=== PATIENT | male | born 1975 | race Caucasian/White ===

== ENCOUNTER 2022-07-14 10:07 | Inpatient (IN) | payer OTHER, SELFPAY ==
[2022-07-14] VITALS (8 sets, daily range): BP systolic 121–144; BP diastolic 84–109; PULSE 92–100; RESP 12–18; TEMP 36.6–37; O2SAT 99–100; BMI 29.9
--- NOTE | ~2022-07-14 | XR_ITS ---
EXAMINATION: XR foot RT min 3V DATE: 07/14/2022 10:56 INDICATION: Diabetic with right second toe wound TECHNIQUE: Dorsoplantar, two oblique and lateral views of the right foot were obtained. COMPARISON: None. FINDINGS: Change consistent with right great toe amputation with relatively smooth osteotomy margins across the mid diaphysis of the first metatarsal and a couple associated residual) versus heterotopic ossicles also with smooth margins. Fracture at the base of the right second middle phalanx with displacement o f a bone fragment which projects to near the skin surface dorsal to the head of the proximal fragment which appears to remain intact with smooth cortical surface. There appears to be some osteolysis josephine ng the fracture margin of the distal fragment as well as of projecting along the level of the skin yee rface which suggests an open/compound fracture with secondary osteomyelitis which does not appear to involve the more proximal or distal phalanges. No other fractures or lesions suspicious for osteomyel itis. Prominent hypertrophic changes about the lateral malleolus which could represent heterotopic os sification related to chronic lateral ankle sprains. Mild polyarticular osteoarthritis at the right a nkle joint and many of the joints throughout the right foot. No soft tissue gas or radiopaque foreign bodies. IMPRESSION: 1. Displaced fracture at the base of the right second middle phalanx, one fragment which appears to e xtend near the level of the dorsal skin surface. There appears to be some osteolysis steroid with th is fragment and the more distal fragment raising concern for an open/compound fracture with secondary osteomyelitis. 2. Postoperative change of prior right great toe amputation with osteotomy at the first metatarsal di aphysis. 3. Prominent hypertrophic changes about the lateral malleolus likely sequela of chronic lateral ankle sprain. Reviewed, dictated and finalized at location A. NDWATER MONITORING TECHNICIAN IMPRESSION: 1. Displaced fracture at the base of the right second middle phalanx, one fragm ent which appears to extend near the level of the dorsal skin surface. There ap pears to be some osteolysis steroid with this fragment and the more distal fra gment raising concern for an open/compound fracture with secondary osteomyeliti s. 2. Postoperative change of prior right great toe amputation with osteotomy at t he first metatarsal diaphysis. 3. Prominent hypertrophic changes about the lateral malleolus likely sequela of chronic lateral ankle sprain.
--- NOTE | ~2022-07-14 | US_ITS ---
EXAMINATION: US arterial ankle brachial ind DATE: 07/16/2022 10:20 INDICATION: Bilateral arterial occlusive disease TECHNIQUE: Segmental pressures and plethysmographic and Doppler waveforms of the brachial and lower e xtremity arteries were obtained. COMPARISON: None. FINDINGS: Right and left brachial artery pressures of 115 mm Hg and 108 mm Hg, respectively, are concordant (no rmal difference <= 30 mmHg). The left ankle-brachial index (ROSARIO) is 1.17 (normal >= 0.9-1.0). The left great toe-brachial index (T BI) is 0.47 (normal >= 0.65). Arterial Doppler waveforms are biphasic with brisk systolic upstrokes a t both the left posterior tibial and dorsalis pedis arteries. The right ROSARIO is 0.99. The right TBI is unable to be obtained due to prior amputation of the right gr eat toe. Arterial Doppler waveforms are biphasic with borderline delayed upstrokes and slight broaden ing of the systolic peaks at both the right posterior tibial and dorsalis pedis arteries. IMPRESSION: 1. Mild bilateral arterial occlusive disease with mildly decreased right ROSARIO and moderately decreased left TBI. Reviewed, dictated and finalized at location A. MAKING MACHINE SETTER IMPRESSION: 1. Mild bilateral arterial occlusive disease with mildly decreased right ROSARIO an d moderately decreased left TBI.
--- NOTE | 2022-07-14 11:36 | ED.WOUNDLAC ---
HPI - Wound/Laceration General Chief Complaint: Wound/Laceration Stated Complaint: foot ulcer Time Seen by Provider: 07/14/22 10:33 History of Present Illness HPI narrative: Pt presents with a wound and discoloration to right 2nd toe. Pt says he had right great toe amputated awhile back by Dr Flores at [facility]. Pt had recent abscess drainage in inguinal area as well. Pt says he noticed a wound on his 2nd toe a few days ago but it seems to have gotten worse and he squeezed it and blood came out but no pus. Today noticed it was blue. Pt is diabetic and has neuropathy. Pt did stub toe a couple of days ago. Pt is known covid positive. Related Data Allergies Allergy/AdvReac Type Severity Reaction Status Date / Time haloperidol AdvReac Unknown Anaphylaxis Verified 07/14/22 10:19 Review of Systems Review of Systems: All systems reviewed & are unremarkable except as noted in HPI and below Exam Const: General: healthy appearing Nutritional Appearance: well nourished Orientation/consciousness: patient oriented x3 Limitations: no limitations Eyes: Conjunctivae: conjunctivae normal EOM: EOMs intact bilaterally Neck: Neck: normal visual inspection and no lymphadenopathy Resp: Effort & Inspection: normal respiratory effort Auscultation: clear to auscultation bilaterally Cardio: Rate: regular rate Rhythm: regular rhythm GI: GI Palp: Yes Soft to palpation and No Tenderness to palpation present (GI) Auscultation: normal bowel sounds Skin: Other: blue/cyanotic right 2nd toe Neuro: General: patient oriented x3 and moves all extremities Speech: normal speech Extrem: Other: wound to 2nd toe no purulent cyanotic blue toe Psych: Mental Status: mental status grossly normal Affect: normal affect Attitude: cooperative Course Vital Signs Vital signs: Vital Signs Temperature 98 F 07/14/22 10:05 Pulse Rate 92 07/14/22 10:05 Respiratory Rate 12 07/14/22 10:05 Blood Pressure 121/96 H 07/14/22 10:05 Pulse Oximetry 100 07/14/22 10:05 Temperature 98 F 07/14/22 10:05 Pulse Rate 100 07/14/22 16:37 Respiratory Rate 12 07/14/22 16:37 Blood Pressure 144/105 H 07/14/22 16:46 Pulse Oximetry 100 07/14/22 16:46 MDM - Wound/Laceration MDM Narrative Medical decision making narrative: fx v necrotic toe v osteo d/w dr hill will see pt d/w anel cha will accept admit med/surg Lab Data 07/14/22 11:30 07/14/22 11:30 Labs: Lab Results 07/14/22 07/14/22 07/14/22 Range/Units 11:30 11:30 11:30 WBC 7.3 (4.5-10.0) K/mm3 RBC 5.31 (4.6-6.20) M/mm3 Hgb 14.4 (14.0-18.0) g/dL Hct 46.5 (42.0-52.0) % MCV 87.6 (80-100) fl MCH 27.1 (26-34) pg MCHC 31.0 L (32-36) g/dl RDW 15.5 H (11.5-14.5) % Plt Count 237 (150-375) k/mm3 MPV 10.2 (7.4-10.4) fl Immature Gran % (Auto) 0.1 (0-0.5) % Neut % (Auto) 66.1 (45.5-73.1) % Lymph % (Auto) 27.8 (18.3-44.2) % Brooke % (Auto) 5.3 (2.6-8.5) % Eos % (Auto) 0.4 (0-4.4) % Baso % (Auto) 0.3 (0.2-1.2) % Lymph # (Auto) 2.03 (0.9-3.2) K/mm3 Brooke # (Auto) 0.4 (0.1-0.6) K/mm3 Eos # (Auto) 0.0 (0-0.3) K/mm3 Baso # (Auto) 0.0 (0.0-0.1) K/mm3 Abs Immat Gran (auto) 0.01 (0.00-0.031) K/mm3 Absolute Neuts (auto) 4.8 (1.3-6.7) K/mm3 Absolute Nucleated RBC 0.0 (0.0-0.012) K/mm3 Nucleated RBC % 0.0 (0.0-0.2) % PT 14.0 (11.1-14.7) Seconds INR 1.1 APTT 28.7 (22.3-36.8) SECONDS Sodium 131 L (137-145) mmol/L Potassium 4.1 (3.4-5.0) mmol/L Chloride 95 L (98-107) mmol/L Carbon Dioxide 31 H (22-30) mmol/L Anion Gap 5 L (8-16) mmol/L BUN 22 H (9-20) mg/dL Creatinine 1.00 (0.7-1.3) mg/dL Estim Creat Clear Calc Not Reportable Estimated GFR > 60 (59 - ) Glucose 77 (65-110) mg/dL Lactic Acid (0.7-2.0) mmol/L Calcium 8.1 L (8.4-10.2) mg/dL Total Bilirubin 0.8 (0.2-1.3)
[2022-07-14 11:43] LABS: Basophils Percent Auto 0.3 % (0.2-1.2); Eosinophils Percent Auto 0.4 % (0-4.4); Hematocrit 46.5 % (42.0-52.0); Hemoglobin 14.4 g/dL (14.0-18.0); Immature Granulocyte Absolute 0.01 K/mm3 (0.00-0.031); Immature Granulocyte Percent A 0.1 % (0-0.5); Lymphocytes Absolute Auto 2.03 K/mm3 (0.9-3.2); Lymphocytes Percent Auto 27.8 % (18.3-44.2); Mean Corpuscular Hemoglobin 27.1 pg (26-34); Mean Corpuscular Volume 87.6 fl (80-100); Mean Platelet Volume 10.2 fl (7.4-10.4); Monocytes Absolute Auto 0.4 K/mm3 (0.1-0.6); Monocytes Percent Auto 5.3 % (2.6-8.5); Neutrophils Absolute Auto 4.8 K/mm3 (1.3-6.7); Neutrophils Percent Auto 66.1 % (45.5-73.1); Platelet Count Result 237 k/mm3 (150-375); Red Blood Count 5.31 M/mm3 (4.6-6.20); Red Cell Distribution Width 15.5 % (11.5-14.5); White Blood Count 7.3 K/mm3 (4.5-10.0)
[2022-07-14] MEDS: MORPHINE SULFATE (*CRX) 4 MG/ML INJ IV PUSH (11:43)
[2022-07-14 11:55] LABS: Lactic Acid Reflex 1.1 mmol/L (0.7-2.0)
[2022-07-14 11:57] LABS: INR 1.1
[2022-07-14 11:58] LABS: Alanine Aminotransferase 22 U/L (6-50); Albumin Level 3.5 g/dL (3.5-5.1); Alkaline Phosphatase 125 U/L (38-126); Anion Gap 5 mmol/L (8-16); Aspartate Amino Transferase 30 U/L (17-59); Bilirubin,Total 0.8 mg/dL (0.2-1.3); Blood Urea Nitrogen 22 mg/dL (9-20); CRP 1.1 mg/dL (<1.0); Calcium 8.1 mg/dL (8.4-10.2); Carbon Dioxide 31 mmol/L (22-30); Chloride 95 mmol/L (98-107); Estimated Glomerular Filt Rate > 60; Glucose 77 mg/dL (65-110); Partial Thromboplastin Time 28.7 SECONDS (22.3-36.8); Potassium 4.1 mmol/L (3.4-5.0); Sodium 131 mmol/L (137-145)
[2022-07-14 12:19] LABS: Influenza A QL RT-PCR Negative (Negative); Influenza B QL RT-PCR Negative (Negative); SARS-CoV-2 RNA PCR Positive
--- NOTE | 2022-07-14 13:45 | PM.IMHP ---
H&P: HPI History of Present Illness Date/Time: 07/14/22 13:45 Chief Complaint: Left toe wound. Narrative: This is a 47-year-old male with insulin-dependent diabetes, peripheral neuropathy, hypertension, hyperlipidemia, and heart failure with reduced ejection fraction who presented to the ED via EMS from [facility] for evaluation of a left toe wound. He has had what sounds like a blister on the left 2nd toe and a couple of days ago he believes that he stubbed that toe as the tip of the toe is now black and blue. The chronic blistered area has apparently increased in size and this morning he squeeze the area and reports that some blood came out, no purulent drainage. Radiographs showed a displaced fracture at the base of the right 2nd middle phalanx with appearance of osteolysis and possible osteomyelitis. On exam he was noted to have a right 1st toe amputation which was done earlier this year at [facility] and he reports that he still has pain surrounding that site though that is not new. Also of note he tested positive for COVID about 5 to 7 days ago but he has not really had any significant symptoms. He denies fever, chills, sweats, sinus congestion, sore throat, cough, nausea, vomiting, and diarrhea. No known history of multidrug resistant organisms. Review of Systems Review of Systems: Twelve systems were reviewed and are negative except for as per HPI. [facility] Past Medical History Medical History (Updated 07/14/22 @ 21:54 by Elizabeth Hernandez PA-C) Anxiety Heart failure with reduced ejection fraction Hyperlipidemia Hypertension Insulin dependent type 2 diabetes mellitus Posttraumatic stress disorder Surgical History Surgical History (Updated 07/14/22 @ 21:48 by Elizabeth Hernandez PA-C) History of amputation of right great toe (2021) History of cardiac catheterization Clear coronaries per patient report. History of open reduction and internal fixation (ORIF) procedure Bilateral ankles and left hand. Family History Family History (Updated 07/14/22 @ 21:49 by Elizabeth Hernandez PA-C) Mother Cerebrovascular accident Acute myocardial infarction Father Diabetes mellitus Hypertension Congestive heart failure Sibling Diabetes mellitus Hypertension Social History Social History (Updated 07/14/22 @ 21:49 by Elizabeth Hernandez PA-C) Social History: Surrogate medical decision maker: Ton Montenegro, son. Code status: Full code. Smoking packs per day: 1 Smoking cigarettes per day: 20.0 Smoking status: Former smoker Tobacco type: cigarettes Smoking end date: 04/28/22 Alcohol intake: never Substance use: current Substance use type: marijuana Lack of Transportation: No Lack of Food: Never True Current Housing: I Do Not Have Housing Concerned About Future Housing: YES Difficulty Paying Gas/Electric Bills: Decline to Answer Difficulty Paying for Meds: No Currently Unemployed: YES Education: Decline to Answer Difficulty w/ Childcare or Family Care: No Additional living arrangements comments: Currently at [facility]. Additional occupation/education comments: Not currently employed, previously worked in [employer]. Spiritual care concerns: No Meds Home Medications and Allergies Home Medications Medication Instructions Recorded Confirmed Type Atarax 50 mg PO Q6-8H PRN Anxiety 07/14/22 07/14/22 History Lasix 60 mg PO DAILY 07/14/22 07/14/22 History Multi-Day Plus Minerals 1 cap PO DAILY 07/14/22 07/14/22 History acetaminophen 650 mg PO Q6-8H PRN Pain 07/14/22 07/14/22 History atorvastatin 40 mg tablet 40 mg PO HS 07/14/22 07/14/22 History gabapentin 600 mg PO TID 07/14/22 07/14/22 History insulin glargine 100 unit/mL 25 unit subcut HS 07/14/22 07/14/22 History subcutaneous solution (Lantus U-100 Insulin) insulin lispro 100 unit/mL See Rx Instructions .Route .COMPLEX 07/14/22 07/14/22 History subcutaneous solution (Humalog U-100 Insulin)
[2022-07-14] MEDS: HYDROmorphone HCL INJ (*CRX) 1 MG/ML SYR 0.5 MG IV PUSH (14:14)
[2022-07-14] MEDS: metroNIDAZOLE 500 MG/ISO 100ML 500 MG/100 ML BAG 100 MG IVPB ×2 (14:21→22:18)
[2022-07-14 16:21] LABS: Glucose Point of Care 66 mg/dl (65-105)
--- NOTE | 2022-07-14 17:12 | PC.NURSE ---
Pt given OJ, sandwich, and chips. Pt asymptomatic. Will repeat BS.
[2022-07-14 17:14] LABS: Glucose Point of Care 57 mg/dl (65-105)
[2022-07-14 17:42] LABS: Glucose Point of Care 114 mg/dl (65-105)
--- NOTE | 2022-07-14 17:55 | ADMGEN ---
This patient, Armani Montenegro, was admitted to Medical Room 246-. Patient/family oriented to hospital policies and general routines including ID bracelet, bed and alarms, visiting hours, pain management, procedures, bathroom and other care routines, personal items, smoking policy, room service/diet, and visiting hours. Information on how to activate the Rapid Response Team has been discussed. Patient/Family are encouraged to report perceived risks to care and to ask questions if they do not understand what they are told or what they should do.
[2022-07-14] MEDS: MORPHINE SULFATE (*CRX) 2 MG/ML INJ IV PUSH (22:18)
[2022-07-14] MEDS: GABAPENTIN 300 MG CAPSULE 600 MG PO (22:39)
[2022-07-14] MEDS: ATORVASTATIN 40 MG TABLET PO (22:39)
[2022-07-14 22:44] LABS: Glucose Point of Care 94 mg/dl (65-105)
[2022-07-15] MEDS: HYDROcodone/acetaminophen (*CRX) 5-325 MG TABLET 1 TAB PO ×2 (01:09→20:00)
[2022-07-15] MEDS: MORPHINE SULFATE (*CRX) 2 MG/ML INJ IV PUSH ×2 (02:01→06:09)
[2022-07-15 05:36] VITALS: BP 98/62; PULSE 81; RESP 20; TEMP 37.3; O2SAT 100
[2022-07-15 06:02] LABS: Hematocrit 39.2 % (42.0-52.0); Hemoglobin 12.4 g/dL (14.0-18.0); Mean Corpuscular HGB Conc 31.6 g/dl (32-36); Mean Corpuscular Hemoglobin 27.5 pg (26-34); Mean Corpuscular Volume 86.9 fl (80-100); Mean Platelet Volume 10.6 fl (7.4-10.4); Platelet Count Result 192 k/mm3 (150-375); Red Blood Count 4.51 M/mm3 (4.6-6.20); Red Cell Distribution Width 15.3 % (11.5-14.5); White Blood Count 5.7 K/mm3 (4.5-10.0)
[2022-07-15 06:14] LABS: Anion Gap 3 mmol/L (8-16); Blood Urea Nitrogen 19 mg/dL (9-20); Calcium 7.6 mg/dL (8.4-10.2); Carbon Dioxide 26 mmol/L (22-30); Chloride 97 mmol/L (98-107); Estimated CRCL calculation 88 ml/min; Estimated Glomerular Filt Rate > 60; Glucose 105 mg/dL (65-110); Magnesium 1.8 mg/dL (1.6-2.3); Potassium 4.4 mmol/L (3.4-5.0); Sodium 126 mmol/L (137-145)
[2022-07-15] MEDS: metroNIDAZOLE 500 MG/ISO 100ML 500 MG/100 ML BAG 100 MG IVPB ×3 (06:38→22:24)
[2022-07-15 06:57] LABS: Hemoglobin A1C 7.8 % (<5.7)
--- NOTE | 2022-07-15 07:05 | PM.IMPN ---
Progress Note: A&P Assessment and Plan (1) Osteomyelitis of toe: Code(s): M86.9 - Osteomyelitis, unspecified Status: Acute Assessment and Plan: Presented with left 2nd toe wound that has been present for a couple days. Hx of left great toe amputation. Xray revealed displaced fx at the base of the right second middle phalanx. Concern for an open/compound fx with secondary osteomyelitis. Continue cefepime, metronidazole, and vancomycin. Patient unable to see Podiatry due to insurance coverage and not willing to pay [id number]. General surgery consulted Blood cultures pending Wound care consulted NPO diet due to possible surgery White blood cell count within normal limits Hemoglobin A1c 7.8 (2) Insulin dependent type 2 diabetes mellitus: Code(s): E11.9 - Type 2 diabetes mellitus without complications; Z79.4 - MCFP (current) use of insulin Status: Acute Assessment and Plan: Chronic Continue basal insulin. Initiate sliding scale insulin, Accu-Cheks, and hypoglycemic protocol. Hemoglobin A1c 7.8 (3) Open fracture of phalanx of right second toe: Code(s): S92.501B - Displaced unspecified fracture of right lesser toe(s), initial encounter for open fracture Status: Acute Assessment and Plan: Plan is as detailed above. Analgesics available as needed. (4) Hypertension: Code(s): I10 - Essential (primary) hypertension Status: Acute Assessment and Plan: Chronic Blood pressures were reviewed and they are stable. Continue antihypertensives and monitor. (5) Heart failure with reduced ejection fraction: Code(s): I50.20 - Unspecified systolic (congestive) heart failure Status: Acute Assessment and Plan: Euvolemic on exam. Avoid over-hydration. Time Spent With Patient Time with patient: Greater than 35 minutes Subjective Date/time seen: 07/15/22 07:05 Interval history: 47-year-old male with history of insulin-dependent diabetes, hypertension and hyperlipidemia. Patient presents to the ED on 07/14/2022 with necrotic right 2nd toe. Patient states that he has had blister on top of his toe for couple weeks and in the past 3 days or so he had developed pain and worsening discoloration to the toe. Patient does have a history of right great toe amputation. Patient currently having pain in the foot although he does have a history of neuropathy. Patient denies chest pain, shortness a breath, nausea, vomiting, dizziness and fever. Review of Systems Review of Systems: All systems reviewed & are unremarkable except as noted in HPI and below Exam Narrative: GENERAL: Comfortable, no acute distress NECK: no lymphadenopathy RESPIRATORY: clear to auscultation CARDIO: RRR GI: soft, nontender, bowel sounds present SKIN: no rashes EXTREMITIES: Right 2nd toe necrosis; Middle phalanx with blacken wound on dorsal aspect of the foot, distal phalanx was circumferential cyanosis. Proximal phalanx, PIP and MTP joint erythema and tenderness. Edema surrounding the right foot. Right great toe amputation. Dorsalis pedis +2 pulse bilaterally. Objective Data Vital Signs Vital Signs: Vital Signs - 24 hr 07/14/22 10:05 07/14/22 16:37 07/14/22 16:38 Temperature 98 F Pulse Rate 92 100 Respiratory Rate 12 12 Blood Pressure 121/96 H 143/100 H 121/108 H Pulse Oximetry 100 100 99 Oxygen Delivery 07/14/22 16:39 07/14/22 16:46 07/14/22 18:41 Temperature 98.6 F Pulse Rate 97 Respiratory Rate 18 Blood Pressure 143/109 H 144/105 H 139/91 H Pulse Oximetry 100 100 100 Oxygen Delivery 07/14/22 20:36 07/14/22 22:00 07/15/22 05:36 Temperature 98.1 F 99.1 F Pulse Rate 94 94 81 Respiratory Rate 16 16 20 Blood Pressure 134/84 98/62 L Pulse Oximetry 100 100 100 Oxygen Delivery Room Air Intake/Output Intake/Output: Intake & Output 07/12/22 07/13/22 07/14/22 07/15/22 23:59 23:59 23:59 2
[2022-07-15 08:26] LABS: Glucose Point of Care 80 mg/dl (65-105)
[2022-07-15] MEDS: FUROSEMIDE 20 MG TABLET 60 MG PO (09:08)
[2022-07-15] MEDS: GABAPENTIN 300 MG CAPSULE 600 MG PO ×3 (09:08→17:36)
[2022-07-15] MEDS: lisinopriL 20 MG TABLET PO (09:08)
[2022-07-15] MEDS: THERAPEUTIC MULTIVITAMINS/MINERALS TAB (*BKC) 1 TABLET PO (09:08)
[2022-07-15] MEDS: LORazepam (*CRX) 0.5 MG TABLET PO (10:22)
[2022-07-15] MEDS: MORPHINE SULFATE (*CRX) 2 MG/ML INJ 1 MG IV PUSH ×5 (10:23→21:44)
[2022-07-15 12:45] LABS: Glucose Point of Care 99 mg/dl (65-105)
[2022-07-15 15:03] VITALS: BP 93/63; PULSE 81; RESP 19; TEMP 36.6; O2SAT 99
[2022-07-15 16:50] LABS: Glucose Point of Care 189 mg/dl (65-105)
[2022-07-15] MEDS: SILVERGEL (ELTA) 45 ML 1 APPLIC TOPICAL (18:24)
[2022-07-15 21:16] VITALS: BP 116/79; PULSE 81; RESP 18; TEMP 36.8; O2SAT 99
[2022-07-15] MEDS: ATORVASTATIN 40 MG TABLET PO (21:49)
[2022-07-15] MEDS: INSULIN GLARGINE (*BKC) 100 UNITS/ML 25 UNITS SUB-Q (22:24)
[2022-07-15 22:43] LABS: Glucose Point of Care 170 mg/dl (65-105)
[2022-07-16] MEDS: MORPHINE SULFATE (*CRX) 2 MG/ML INJ 1 MG IV PUSH ×4 (01:44→11:47)
[2022-07-16 02:36] LABS: Glucose Point of Care 143 mg/dl (65-105)
[2022-07-16 04:16] VITALS: BP 100/64; PULSE 89; RESP 20; TEMP 36.8; O2SAT 98
[2022-07-16 05:56] LABS: Basophils Percent Auto 0.2 % (0.2-1.2); Eosinophils Absolute Auto 0.1 K/mm3 (0-0.3); Eosinophils Percent Auto 1.2 % (0-4.4); Hematocrit 41.9 % (42.0-52.0); Hemoglobin 13.3 g/dL (14.0-18.0); Immature Granulocyte Absolute 0.02 K/mm3 (0.00-0.031); Immature Granulocyte Percent A 0.4 % (0-0.5); Lymphocytes Absolute Auto 1.65 K/mm3 (0.9-3.2); Lymphocytes Percent Auto 33.1 % (18.3-44.2); Mean Corpuscular HGB Conc 31.7 g/dl (32-36); Mean Corpuscular Hemoglobin 28.1 pg (26-34); Mean Corpuscular Volume 88.4 fl (80-100); Mean Platelet Volume 10.7 fl (7.4-10.4); Monocytes Absolute Auto 0.3 K/mm3 (0.1-0.6); Monocytes Percent Auto 5.6 % (2.6-8.5); Neutrophils Percent Auto 59.5 % (45.5-73.1); Platelet Count Result 200 k/mm3 (150-375); Red Blood Count 4.74 M/mm3 (4.6-6.20); Red Cell Distribution Width 15.3 % (11.5-14.5)
[2022-07-16] MEDS: metroNIDAZOLE 500 MG/ISO 100ML 500 MG/100 ML BAG 100 MG IVPB ×3 (06:06→21:18)
[2022-07-16 06:10] LABS: Alanine Aminotransferase 17 U/L (6-50); Albumin Level 2.9 g/dL (3.5-5.1); Alkaline Phosphatase 107 U/L (38-126); Anion Gap 5 mmol/L (8-16); Aspartate Amino Transferase 19 U/L (17-59); Bilirubin,Total 0.6 mg/dL (0.2-1.3); Blood Urea Nitrogen 20 mg/dL (9-20); Calcium 7.4 mg/dL (8.4-10.2); Carbon Dioxide 26 mmol/L (22-30); Chloride 95 mmol/L (98-107); Estimated CRCL calculation 97 ml/min; Estimated Glomerular Filt Rate > 60; Glucose 289 mg/dL (65-110); Potassium 4.6 mmol/L (3.4-5.0); Sodium 126 mmol/L (137-145)
[2022-07-16 08:00] LABS: Glucose Point of Care 195 mg/dl (65-105)
--- NOTE | 2022-07-16 08:02 | PM.CNOR ---
Assessment and Plan Assessment and plan (1) Gangrene of toe of right foot: Code(s): I96 - Gangrene, not elsewhere classified Status: Acute Assessment and Plan: right 2nd toe gangrene with necrosis and exposed bone. Patient with uncontrolled diabetes, peripheral neuropathy and suspected peripheral arterial disease. Discussed with patient. Previous right hallux amputation several months ago. Wound care initiated. Patient on IV antibiotics. Recommend arterial blood flow studies to evaluate bilateral lower extremities. Most likely require debridement. Discussed with patient. Will await results of blood flow study. 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 Risks and benefits of each as well as alternatives were reviewed. All of the patient's questions were answered. The risks of surgery reviewed including but not limited to: Neurovascular damage, wound complication, infection, blood clot, pulmonary embolus, stroke, myocardial infarction, and anesthetic risks up to and including . Continued pain and possible dysfunction were explained. Specific risks of the procedure including later recurrence of deformity. No guarantees were offered. If hardware used, discussed risk of failure/ breakage and possible need for removal. If complications occur, the patient understands the need for further treatment, possible further surgery. Patient verbalizes understanding and wishes to proceed. PLAN: Debridement right 2nd toe with amputation. History of Present Illness HPI Consult date: 07/16/22 Requesting physician: Elizabeth Hernandez PA-C Chief complaint: Right Second Toe Fx/Osteo Narrative: 47-year-old man with history of diabetes, peripheral neuropathy and peripheral arterial disease admitted for gangrene right 2nd toe. Patient was in a rehab /custodial facility for peroneal gangrene when developed swelling and ecchymosis the right distal 2nd toe. Patient thinks he may be stubbed or otherwise injured is not sure. Changes noted past several days. History right great toe amputation secondary to gangrene performed by vascular surgeon in [place]. Review of Systems Constitutional: Constitutional: Denies fever(s) Eyes: Eyes: Denies blurry vision ENT: Reports Normal hearing present Cardiovascular: Cardiovascular: Denies chest pain and Denies dyspnea Respiratory: Respiratory: Denies dyspnea and Denies wheezing Gastrointestinal: Gastrointestinal: Denies abdominal pain Genitourinary: Genitourinary: Denies urinary urgency Musculoskeletal: Musculoskeletal: Reports as per HPI and Denies numbness Integumentary/Breasts: Skin/Breast: Denies changing lesions and Denies sores Neurologic: Reports Normal hearing present, Denies behavioral changes, Denies confusion, Denies numbness and Denies convulsions Psychiatric: Psychiatric: Denies behavioral changes, Denies confusion and Denies hallucinations Endocrine: Endocrine: Denies heat intolerance Hematologic/Lymphatic: Hematologic/Lymphatic: Denies easy bleeding Allergic/Immunologic: Allergic/Immunologic: Denies wheezing PMF Past Medical History Medical History (Updated 07/16/22 @ 08:08 by Randy Mann MD) Anxiety Gangrene of toe of right foot Heart failure with reduced ejection fraction Hyperlipidemia Hypertension Insulin dependent type 2 diabetes mellitus Posttraumatic stress disorder Surgical History Surgical History History of amputation of right great toe (2021) History
[2022-07-16] MEDS: THERAPEUTIC MULTIVITAMINS/MINERALS TAB (*BKC) 1 TABLET PO (08:39)
[2022-07-16] MEDS: GABAPENTIN 300 MG CAPSULE 600 MG PO ×3 (08:39→17:27)
[2022-07-16] MEDS: lisinopriL 20 MG TABLET PO (08:39)
[2022-07-16] MEDS: SILVERGEL (ELTA) 45 ML 1 APPLIC TOPICAL (08:39)
[2022-07-16] MEDS: INSULIN ASPART (*BKC) 100 UNITS/ML SUB-Q ×2 (12:14→17:24)
[2022-07-16 12:22] LABS: Glucose Point of Care 269 mg/dl (65-105)
[2022-07-16 14:07] LABS: Sodium 126 mmol/L (137-145)
[2022-07-16 14:29] LABS: Vancomycin Trough 25.8 ug/mL (10.0-20.0)
[2022-07-16 14:44] VITALS: BP 126/76; PULSE 95; RESP 17; TEMP 36.2; O2SAT 99
--- NOTE | 2022-07-16 14:50 | PM.IMPN ---
Progress Note: A&P Assessment and Plan (1) Osteomyelitis of toe: Code(s): M86.9 - Osteomyelitis, unspecified Status: Acute Assessment and Plan: Presented with left 2nd toe wound that has been present for a couple days. Hx of left great toe amputation. Xray revealed displaced fx at the base of the right second middle phalanx. Concern for an open/compound fx with secondary osteomyelitis. Continue cefepime, metronidazole, and vancomycin. Antibiotics day 3 Patient unable to see Podiatry due to insurance coverage and not willing to pay [id number]. Dr. Mann, Orthopedics consulted and appreciate recommendations. Per Orthopedics I wound care with Betadine swab b.i.d. Blood cultures pending Wound care consulted WBC 5 without left shift, lactic acid 1.1 on admission, CRP 1.1 Hemoglobin A1c 7.8 Patient NPO after midnight for possible debridement Change analgesics to oxycodone IR 10 mg Q6 hours PRN with IV morphine 2 mg Q3 hours breakthrough pain. ABIs - Left ROSARIO 1.17, TBI 0.47; Right ROSARIO 0.99, TBI unable to obtain due to amputation. 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 Initiate sliding scale insulin, Accu-Cheks, and hypoglycemic protocol. Hemoglobin A1c 7.8 Glucose 143-269 in the past 24 hours, patient will be NPO after midnight will adjust Lantus and NovoLog well and p.o. and adjust to keep glucose less than 200 for wound healing. Consistent carb diet. (3) Open fracture of phalanx of right second toe: Qualifiers: Encounter type: initial encounter Qualified Code(s): S92.501B - Displaced unspecified fracture of right lesser toe(s), initial encounter for open fracture Code(s): S92.501B - Displaced unspecified fracture of right lesser toe(s), initial encounter for open fracture Status: Acute Assessment and Plan: Plan is as detailed above. Analgesics available as needed. Ortho following. (4) Hypertension: Qualifiers: Hypertension type: primary hypertension Qualified Code(s): I10 - Essential (primary) hypertension Code(s): I10 - Essential (primary) hypertension Status: Chronic Assessment and Plan: Chronic, stable. Blood pressures were reviewed. BP soft 93/63 to 100/64. Hold furosemide due to hyponatremia. Continue lisinopril with hold parameters. (5) Heart failure with reduced ejection fraction: Code(s): I50.20 - Unspecified systolic (congestive) heart failure Status: Chronic Assessment and Plan: Chronic, not in acute exacerbation. No s/s hypervolemia. Sodium 126 today 07/16/22 Monitor I/O and daily weights. (6) Hyponatremia: Code(s): E87.1 - Hypo-osmolality and hyponatremia Status: Acute Assessment and Plan: Sodium 126 on 07/16/22. unknown baseline, but 131 on admission. May be medication induced. Hold furosemide. Monitor on narcotics, although he takes these chronically. Check urine sodium and urine osmolality. Monitor I/O. (7) Perineal abscess: Code(s): L02.215 - Cutaneous abscess of perineum Status: Chronic Assessment and Plan: Noted prior to admission. Continue wound care daily Time Spent With Patient Time: All of patient's questions answered to the best of my ability. Time with patient: 15 - 25 minutes Subjective Date/time seen: 07/16/22 14:50 Interval history: Patient sitting up in the bed and reports persistent right 2nd toe pain. He has been taking IV morphine frequently throughout the night. He reports the [place] tablets have not been helping and thinks this is secondary to taking stronger pain medications after his last hospitalization. He reports taking oxycodone 10 mg Q 4 hours p.r.n. at rehab and at this is being weaned to
[2022-07-16] MEDS: oxyCODONE HCL (*CRX) 5 MG TAB IR 10 MG PO ×2 (15:24→21:18)
[2022-07-16 16:59] LABS: Glucose Point of Care 229 mg/dl (65-105)
[2022-07-16 19:33] LABS: Sodium Urine Random 91 meq/L
[2022-07-16] MEDS: ATORVASTATIN 40 MG TABLET PO (21:18)
[2022-07-16 21:30] LABS: Glucose Point of Care 178 mg/dl (65-105)
[2022-07-16 21:40] VITALS: BP 114/79; PULSE 97; RESP 18; TEMP 36.6; O2SAT 98
[2022-07-16] MEDS: INSULIN GLARGINE (*BKC) 100 UNITS/ML 15 UNITS SUB-Q (21:45)
[2022-07-16 22:03] VITALS: O2SAT 98
[2022-07-17] VITALS (14 sets, daily range): BP systolic 103–161; BP diastolic 71–98; PULSE 79–94; RESP 14–20; TEMP 36.2–36.8; O2SAT 95–100
[2022-07-17] MEDS: oxyCODONE HCL (*CRX) 5 MG TAB IR 10 MG PO ×4 (03:10→22:40)
[2022-07-17 05:13] LABS: Glucose Point of Care 204 mg/dl (65-105)
[2022-07-17] MEDS: INSULIN ASPART (*BKC) 100 UNITS/ML SUB-Q (05:19)
[2022-07-17 05:56] LABS: Basophils Percent Auto 0.3 % (0.2-1.2); Eosinophils Percent Auto 0.6 % (0-4.4); Hematocrit 42.4 % (42.0-52.0); Immature Granulocyte Absolute 0.03 K/mm3 (0.00-0.031); Immature Granulocyte Percent A 0.5 % (0-0.5); Lymphocytes Absolute Auto 2.21 K/mm3 (0.9-3.2); Lymphocytes Percent Auto 35.9 % (18.3-44.2); Mean Corpuscular HGB Conc 30.7 g/dl (32-36); Mean Corpuscular Hemoglobin 26.7 pg (26-34); Mean Corpuscular Volume 87.2 fl (80-100); Mean Platelet Volume 10.5 fl (7.4-10.4); Monocytes Absolute Auto 0.4 K/mm3 (0.1-0.6); Monocytes Percent Auto 6.3 % (2.6-8.5); Neutrophils Absolute Auto 3.5 K/mm3 (1.3-6.7); Neutrophils Percent Auto 56.4 % (45.5-73.1); Platelet Count Result 226 k/mm3 (150-375); Red Blood Count 4.86 M/mm3 (4.6-6.20); Red Cell Distribution Width 15.1 % (11.5-14.5); White Blood Count 6.2 K/mm3 (4.5-10.0)
[2022-07-17] MEDS: metroNIDAZOLE 500 MG/ISO 100ML 500 MG/100 ML BAG 100 MG IVPB ×3 (05:56→22:41)
[2022-07-17 06:04] LABS: INR 1.3; Prothrombin Time 15.5 Seconds (11.1-14.7)
[2022-07-17 06:05] LABS: Partial Thromboplastin Time 30.8 SECONDS (22.3-36.8)
[2022-07-17 06:06] LABS: Alanine Aminotransferase 15 U/L (6-50); Albumin Level 2.9 g/dL (3.5-5.1); Alkaline Phosphatase 98 U/L (38-126); Anion Gap 6 mmol/L (8-16); Aspartate Amino Transferase 20 U/L (17-59); Bilirubin,Total 0.5 mg/dL (0.2-1.3); Blood Urea Nitrogen 18 mg/dL (9-20); Calcium 7.5 mg/dL (8.4-10.2); Carbon Dioxide 24 mmol/L (22-30); Chloride 100 mmol/L (98-107); Estimated CRCL calculation 97 ml/min; Estimated Glomerular Filt Rate > 60; Glucose 214 mg/dL (65-110); Potassium 4.5 mmol/L (3.4-5.0); Sodium 130 mmol/L (137-145)
--- NOTE | 2022-07-17 06:51 | WPDHPUPDATE1 ---
History and Physical Update Update Date/Time: 07/17/22 06:51 History and Physical has been reviewed, including an updated exam of the patient. ABIs performed yesterday show distal arterial disease bilaterally. There are NO changes in the patient's condition. Risks, benefits, and alternatives have been discussed and questions answered. Patient agrees to proceed with procedure.
[2022-07-17] MEDS: THERAPEUTIC MULTIVITAMINS/MINERALS TAB (*BKC) 1 TABLET PO (09:34)
[2022-07-17] MEDS: GABAPENTIN 300 MG CAPSULE 600 MG PO ×2 (09:34→17:35)
[2022-07-17] MEDS: lisinopriL 20 MG TABLET PO (09:35)
[2022-07-17] MEDS: SILVERGEL (ELTA) 45 ML 1 APPLIC TOPICAL (09:36)
[2022-07-17 12:26] LABS: Glucose Point of Care 121 mg/dl (65-105)
--- NOTE | 2022-07-17 13:07 | PM.IMPN ---
Progress Note: A&P Assessment and Plan (1) Osteomyelitis of toe: Code(s): M86.9 - Osteomyelitis, unspecified Status: Acute Assessment and Plan: Presented with left 2nd toe wound that has been present for a couple days. Hx of left great toe amputation. Xray revealed displaced fx at the base of the right second middle phalanx. Concern for an open/compound fx with secondary osteomyelitis. Continue cefepime, metronidazole, and vancomycin. Antibiotics day 3 Patient unable to see Podiatry due to insurance coverage and not willing to pay [id number]. Dr. Mann, Orthopedics consulted and appreciate recommendations. Per Orthopedics I wound care with Betadine swab b.i.d. Blood cultures negative to date. WBC 5 without left shift, lactic acid 1.1 on admission, CRP 1.1 Hemoglobin A1c 7.8 Change analgesics to oxycodone IR 10 mg Q6 hours PRN with IV morphine 2 mg Q3 hours breakthrough pain. ABIs - Left ROSARIO 1.17, TBI 0.47; Right ROSARIO 0.99, TBI unable to obtain due to amputation. 07/17/22 OR debridement today. continue current management. (2) Insulin dependent type 2 diabetes mellitus: Code(s): E11.9 - Type 2 diabetes mellitus without complications; Z79.4 - terminologist (current) use of insulin Status: Chronic Assessment and Plan: Chronic Continue basal insulin. Initiate sliding scale insulin, Accu-Cheks, and hypoglycemic protocol. Hemoglobin A1c 7.8 Glucose 143-269 in the past 24 hours, patient will be NPO after midnight will adjust Lantus and NovoLog well and p.o. and adjust to keep glucose less than 200 for wound healing. 07/17 Resume previous basal-bolus insulin when able to eat after surgery. (3) Open fracture of phalanx of right second toe: Qualifiers: Encounter type: initial encounter Qualified Code(s): S92.501B - Displaced unspecified fracture of right lesser toe(s), initial encounter for open fracture Code(s): S92.501B - Displaced unspecified fracture of right lesser toe(s), initial encounter for open fracture Status: Acute Assessment and Plan: Plan is as detailed above. Analgesics available as needed. Ortho following. (4) Hypertension: Qualifiers: Hypertension type: primary hypertension Qualified Code(s): I10 - Essential (primary) hypertension Code(s): I10 - Essential (primary) hypertension Status: Chronic Assessment and Plan: Chronic, stable. Blood pressures were reviewed. BP 109/71. Hold furosemide due to hyponatremia. Continue lisinopril. (5) Heart failure with reduced ejection fraction: Code(s): I50.20 - Unspecified systolic (congestive) heart failure Status: Chronic Assessment and Plan: Chronic, not in acute exacerbation. No s/s hypervolemia. Sodium 126 on 07/16/22 holding furosemide. Monitor I/O and daily weights. (6) Hyponatremia: Code(s): E87.1 - Hypo-osmolality and hyponatremia Status: Acute Assessment and Plan: Sodium 126 on 07/16/22. unknown baseline, but 131 on admission. May be medication induced. Hold furosemide. Monitor on narcotics, although he takes these chronically. urine sodium 91 and urine osmolality pending. Monitor I/O. 07/17 Sodium 130 today. Improving. (7) Perineal abscess: Code(s): L02.215 - Cutaneous abscess of perineum Status: Chronic Assessment and Plan: Noted prior to admission. Continue wound care daily Time Spent With Patient Time with patient: 15 - 25 minutes Subjective Date/time seen: 07/17/22 13:07 He was found lying in bed. No new complaints. His pain is moderate. He thinks he has a tolerance to oxycodone. He is going to the OR today for debridement/amputation. He has a cough, but no sputum, chest pain, or shortness of breath. Review of Systems Review of Systems: All systems reviewed & are unremarkable except as noted in HPI and below Exam Narrative: GENERAL: Comfortable, no a
--- NOTE | 2022-07-17 13:08 | WPDANESEPPF ---
Anes - Initial Pre Proc Eval Procedure: Operation Date: 07/17/22 15:00 Proposed Procedures p Right Foot Debridement, - Randy Mann MD s Amputation Right Second Toe - Randy Mann MD Date/Time: 07/17/22 13:08 Surgeon: Angi Cifuentes MD Pre Op Diagnosis: Right Second Toe Fx/Osteo Patient Data Age: 47 Gender: M Height: 1.83 m Weight: 98.6 kg Last Vital Signs Temp 36.6 C 07/17/22 05:41 Pulse 94 07/17/22 05:41 Resp 18 07/17/22 05:41 BP 109/71 07/17/22 05:41 Pulse Ox 98 07/17/22 05:41 O2 Del Method Autopap 07/16/22 22:03 Allergies Allergy/AdvReac Type Severity Reaction Status Date / Time haloperidol AdvReac Unknown Anaphylaxis Verified 07/14/22 10:19 Home Medications Medication Instructions Recorded Confirmed Type Atarax 50 mg PO Q6-8H PRN Anxiety 07/14/22 07/14/22 History Lasix 60 mg PO DAILY 07/14/22 07/14/22 History Multi-Day Plus Minerals 1 cap PO DAILY 07/14/22 07/14/22 History acetaminophen 650 mg PO Q6-8H PRN Pain 07/14/22 07/14/22 History atorvastatin 40 mg tablet 40 mg PO HS 07/14/22 07/14/22 History gabapentin 600 mg PO TID 07/14/22 07/14/22 History insulin glargine 100 unit/mL 25 unit subcut HS 07/14/22 07/14/22 History subcutaneous solution (Lantus U-100 Insulin) insulin lispro 100 unit/mL See Rx Instructions .Route .COMPLEX 07/14/22 07/14/22 History subcutaneous solution (Humalog U-100 Insulin) lisinopril 20 mg tablet 20 mg PO DAILY 07/14/22 07/14/22 History metformin 500 mg tablet 500 mg PO BIDAC 07/14/22 07/14/22 History oxycodone 10 mg PO Q4-6H PRN Pain 07/14/22 07/14/22 History Laboratory Tests 07/16/22 07/16/22 07/16/22 13:33 13:33 16:48 WBC RBC Hgb Hct MCV MCH MCHC RDW Plt Count MPV Immature Gran % (Auto) Neut % (Auto) Lymph % (Auto) Wells % (Auto) Eos % (Auto) Baso % (Auto) Lymph # (Auto) [place] # (Auto) Eos # (Auto) Baso # (Auto) Abs Immat Gran (auto) Absolute Neuts (auto) Absolute Nucleated RBC Nucleated RBC % PT INR APTT Sodium 126 mmol/L L mmol/L (137-145) Potassium Chloride Carbon Dioxide Anion Gap BUN Creatinine Estim Creat Clear Calc Estimated GFR Glucose POC Capillary Glucose 229 mg/dl H mg/dl (65-105) Calcium Total Bilirubin AST ALT Alkaline Phosphatase Total Protein Albumin Urine Osmolality Ur Random Sodium Vancomycin Trough 25.8 ug/mL H ug/mL (10.0-20.0) 07/16/22 07/16/22 07/16/22 18:40 18:40 21:24 WBC RBC Hgb Hct MCV MCH MCHC RDW Plt Count MPV Immature Gran % (Auto) Neut % (Auto) Lymph % (Auto) Wells % (Auto) Eos % (Auto) Baso % (Auto) Lymph # (Auto) Wells # (Auto) Eos # (Auto) Baso # (Auto) Abs Immat Gran (auto) Absolute Neuts (auto) Absolute Nucleated RBC Nucleated RBC % PT INR APTT Sodium Potassium Chloride Carbon Dioxide Anion Gap BUN Creatinine Estim Creat Clear Calc Estimated GFR Glucose POC Capillary Glucose 178 mg/dl H mg/dl (65-105) Calcium T
[2022-07-17] MEDS: LACTATED RINGERS 1,000 ML 30 ML IV CONT (14:03)
[2022-07-17 14:19] LABS: Glucose Point of Care 107 mg/dl (65-105)
--- NOTE | 2022-07-17 14:23 | P.OP_ITS ---
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 Dorsal ulceration with exposed bone. Presents for operative treatment. Description of Procedure Patient identified in the preoperative holding. Informed consent given. Operative extremity marked. Patient received intravenous antibiotics. Patient brought to the operating room where underwent general anesthetic by anesthesia team. Positioned supine on operating room table. Time-out performed confirming the patient, site of the surgery and the plan. Right foot prepped draped usual sterile surgical fashion using a Betadine prep solution. Fifteen blade knife used to sharply excise devitalized skin, subcutaneous tissue and muscle from the dorsum of the right foot ulceration. Nonviable and infected material sharply excised and passed off. Loose tissue removed with rongeur and passed off. All devitalized tissue excised. Wound thoroughly irrigated with antibiotic solution. Wound measured 2 x 1 cm. Second toe noted to be necrotic. No blood flow from the mid proximal phalanx distally. Fifteen blade knife used to make an elliptical incision at the midportion of the proximal phalanx elevating soft tissue proximally. Bone cutter used to transect the proximal phalanx. The proximal phalanx and distal toe then sharply removed and passed off as specimen. Wound thoroughly irrigated. Any loose tendon or ligament material sharply excised with 15 blade knife. Skin closed with 0 Prolene interrupted suture. Sterile dressing applied. The patient was then woken from anesthesia, extubated and taken to the recovery room in stable condition. All sponge, needle, instrument counts were correct at the end of the case. Estimated Blood Loss 5 Tourniquet Time 0 Urine Output 900 Drains No Packing No Pathology Yes ( Right 2nd toe specimen) Complications None Condition Stable Disposition PACU [facility] Billing Surgery - Charge Forward: Surgery Billing ([id number], [id number] RT)
[2022-07-17] MEDS: fentaNYL CITRATE INJ (*CRX) 100 MCG/2 ML VIAL 25 MCG IV PUSH ×8 (14:27→15:01)
--- NOTE | 2022-07-17 14:40 | SUR.PHASEI ---
Simple mask removed at 1438.
[2022-07-17] MEDS: ONDANSETRON INJ 4 MG/2 ML VIAL IV PUSH ×3 (14:50→22:47)
[2022-07-17] MEDS: HYDROmorphone HCL INJ (*CRX) 1 MG/ML SYR IV PUSH (15:10)
[2022-07-17] MEDS: MORPHINE SULFATE (*CRX) 2 MG/ML INJ IV PUSH ×2 (17:35→20:12)
[2022-07-17 18:33] LABS: Glucose Point of Care 85 mg/dl (65-105)
[2022-07-17] MEDS: SENNA/DOCUSATE SODIUM TABLET 2 TAB PO (20:12)
[2022-07-17] MEDS: ATORVASTATIN 40 MG TABLET PO (20:12)
[2022-07-17] MEDS: INSULIN GLARGINE (*BKC) 100 UNITS/ML 15 UNITS SUB-Q (20:20)
[2022-07-17 20:54] LABS: Glucose Point of Care 151 mg/dl (65-105)
[2022-07-18] VITALS (7 sets, daily range): BP systolic 108–133; BP diastolic 69–97; PULSE 53–99; RESP 18–20; TEMP 36.2–37.3; O2SAT 93–100
[2022-07-18] MEDS: MORPHINE SULFATE (*CRX) 2 MG/ML INJ IV PUSH ×4 (01:18→16:54)
[2022-07-18 05:53] LABS: Basophils Percent Auto 0.3 % (0.2-1.2); Eosinophils Percent Auto 0.7 % (0-4.4); Hematocrit 40.8 % (42.0-52.0); Hemoglobin 12.7 g/dL (14.0-18.0); Immature Granulocyte Absolute 0.01 K/mm3 (0.00-0.031); Immature Granulocyte Percent A 0.2 % (0-0.5); Lymphocytes Absolute Auto 2.16 K/mm3 (0.9-3.2); Lymphocytes Percent Auto 36.5 % (18.3-44.2); Mean Corpuscular HGB Conc 31.1 g/dl (32-36); Mean Corpuscular Hemoglobin 27.9 pg (26-34); Mean Corpuscular Volume 89.5 fl (80-100); Mean Platelet Volume 10.5 fl (7.4-10.4); Monocytes Absolute Auto 0.4 K/mm3 (0.1-0.6); Monocytes Percent Auto 6.6 % (2.6-8.5); Neutrophils Absolute Auto 3.3 K/mm3 (1.3-6.7); Neutrophils Percent Auto 55.7 % (45.5-73.1); Platelet Count Result 216 k/mm3 (150-375); Red Blood Count 4.56 M/mm3 (4.6-6.20); Red Cell Distribution Width 15.3 % (11.5-14.5); White Blood Count 5.9 K/mm3 (4.5-10.0)
[2022-07-18] MEDS: metroNIDAZOLE 500 MG/ISO 100ML 500 MG/100 ML BAG 100 MG IVPB ×2 (06:02→14:11)
[2022-07-18] MEDS: oxyCODONE HCL (*CRX) 5 MG TAB IR 10 MG PO (06:02)
[2022-07-18 06:22] LABS: Alanine Aminotransferase 14 U/L (6-50); Albumin Level 2.7 g/dL (3.5-5.1); Alkaline Phosphatase 85 U/L (38-126); Anion Gap 4 mmol/L (8-16); Aspartate Amino Transferase 19 U/L (17-59); Bilirubin,Total 0.4 mg/dL (0.2-1.3); Blood Urea Nitrogen 17 mg/dL (9-20); Calcium 7.6 mg/dL (8.4-10.2); Carbon Dioxide 28 mmol/L (22-30); Chloride 96 mmol/L (98-107); Estimated CRCL calculation 90 ml/min; Estimated Glomerular Filt Rate > 60; Glucose 168 mg/dL (65-110); Potassium 4.4 mmol/L (3.4-5.0); Sodium 128 mmol/L (137-145)
--- NOTE | 2022-07-18 08:09 | PM.IMPN ---
Progress Note: A&P Assessment and Plan (1) Osteomyelitis of toe: Code(s): M86.9 - Osteomyelitis, unspecified Status: Acute Assessment and Plan: Presented with left 2nd toe wound that has been present for a couple days. Hx of left great toe amputation. Xray revealed displaced fx at the base of the right second middle phalanx. Concern for an open/compound fx with secondary osteomyelitis. Continue cefepime, metronidazole, and vancomycin. Antibiotics day 3 Patient unable to see Podiatry due to insurance coverage and not willing to pay [id number]. Dr. Mann, Orthopedics consulted and appreciate recommendations. Per Orthopedics I wound care with Betadine swab b.i.d. Blood cultures negative to date. WBC 5 without left shift, lactic acid 1.1 on admission, CRP 1.1 Hemoglobin A1c 7.8 PRN analgesics PO oxycodone IR PRN with IV morphine 2 mg Q3 hours breakthrough pain. ABIs - Left ROSARIO 1.17, TBI 0.47; Right ROSARIO 0.99, TBI unable to obtain due to amputation. 07/17/22 OR debridement today. continue current management. 07/18/22 POD1 OR debridement and right 2nd toe proximal phalanx amputation. Dressing changed per surgery. Pathology pending. Change antibiotics to Bactrim DS 1 tab BID and Augmentin 875/125 mg PO BID for empiric antimicrobial coverage, including MRSA given prior peroneal abscess. continue abx for 7-10 days. Increase oxy IR 15 mg Q6 hours. Trial increase gabapentin dose. Increase gabapentin 800 mg TID. (2) Insulin dependent type 2 diabetes mellitus: Code(s): E11.9 - Type 2 diabetes mellitus without complications; Z79.4 - terminal clerk (current) use of insulin Status: Chronic Assessment and Plan: Chronic Continue basal insulin. Initiate sliding scale insulin, Accu-Cheks, and hypoglycemic protocol. Hemoglobin A1c 7.8 Glucose 143-269 in the past 24 hours, patient will be NPO after midnight will adjust Lantus and NovoLog well and p.o. and adjust to keep glucose less than 200 for wound healing. 07/17 Resume previous basal-bolus insulin when able to eat after surgery. 07/18/22 Increased to lantus 25 units HS and novolog moderate-dose sliding scale insulin. (3) Open fracture of phalanx of right second toe: Qualifiers: Encounter type: initial encounter Qualified Code(s): S92.501B - Displaced unspecified fracture of right lesser toe(s), initial encounter for open fracture Code(s): S92.501B - Displaced unspecified fracture of right lesser toe(s), initial encounter for open fracture Status: Acute Assessment and Plan: Plan is as detailed above. Analgesics available as needed. Ortho following. (4) Hypertension: Qualifiers: Hypertension type: primary hypertension Qualified Code(s): I10 - Essential (primary) hypertension Code(s): I10 - Essential (primary) hypertension Status: Chronic Assessment and Plan: Chronic, stable. Blood pressures were reviewed. BP 109/71. Hold furosemide due to hyponatremia. Continue lisinopril. (5) Heart failure with reduced ejection fraction: Code(s): I50.20 - Unspecified systolic (congestive) heart failure Status: Chronic Assessment and Plan: Chronic, not in acute exacerbation. No s/s hypervolemia. Sodium 126 on 07/16/22 holding furosemide. Monitor I/O and daily weights. (6) Hyponatremia: Code(s): E87.1 - Hypo-osmolality and hyponatremia Status: Acute Assessment and Plan: Sodium 126 on 07/16/22. unknown baseline, but 131 on admission. May be medication induced. Hold furosemide. Monitor on narcotics, although he takes these chronically. urine sodium 91 and urine osmolality pending. Monitor I/O. 07/17 Sodium 130 today. Improving. 07/18/22 Sodium 128 today and unchanged with 1300 repeat. Patient had episode of vomiting overnight. Hold lasix. may be secondary to frequent morphine use. Discussed limiting morphine. Trend sodium level. (7) Perine
[2022-07-18] MEDS: GABAPENTIN 300 MG CAPSULE 600 MG PO ×2 (08:16→12:25)
[2022-07-18] MEDS: THERAPEUTIC MULTIVITAMINS/MINERALS TAB (*BKC) 1 TABLET PO (08:17)
[2022-07-18] MEDS: lisinopriL 20 MG TABLET PO (08:17)
--- NOTE | 2022-07-18 08:33 | PM.PNORT ---
Progress Note: A&P Assessment and Plan (1) Gangrene of toe of right foot: Code(s): I96 - Gangrene, not elsewhere classified Status: Acute Assessment and Plan: Postoperative day 1 right 2nd toe amputation and debridement. Patient appears stable this morning. Dressing change performed. Continue with daily dressing change. Postoperative shoe for protected weight-bearing when up. Recommend antibiotic coverage for 7 to 10 days. May need further antibiotic coverage for his perineal wound. May discharge to nursing facility from orthopedic standpoint. Will follow up in orthopedic office in 3 weeks. Subjective Subjective Date/Time Seen: 07/18/22 08:33 Post Op day: 1 Principal diagnosis: Right toe osteomyelitis Interval history: status post right 2nd toe amputation. Patient states pain when the foot is dependent. Minimal pain when foot is up. Exam Const: General: comfortable; No acute distress Resp: Effort & Inspection: normal respiratory effort and no audible wheezes Extrem: Other: Right foot dressing changed. Second toe incision clean and dry. Minimal sanguinous drainage. No erythema. Objective Data Vital Signs Vital Signs: Vital Signs - 24 hr 07/17/22 14:03 07/17/22 14:15 07/17/22 14:24 Temperature 97.1 F L Pulse Rate 79 80 83 Respiratory Rate 15 14 16 Blood Pressure 103/74 114/80 119/88 Pulse Oximetry 100 98 100 Oxygen Delivery Simple Face Mask Simple Face Mask Simple Face Mask Oxygen Flow Rate 10 10 10 07/17/22 14:30 07/17/22 14:45 07/17/22 15:00 Temperature Pulse Rate 84 83 82 Respiratory Rate 18 16 16 Blood Pressure 133/94 H 128/88 131/91 H Pulse Oximetry 98 96 95 Oxygen Delivery Simple Face Mask Nasal Cannula Nasal Cannula Oxygen Flow Rate 10 2 2 07/17/22 15:15 07/17/22 15:26 07/17/22 15:41 Temperature 97.6 F Pulse Rate 84 83 85 Respiratory Rate 18 18 18 Blood Pressure 124/88 138/84 161/87 H Pulse Oximetry 99 98 100 Oxygen Delivery Nasal Cannula Oxygen Flow Rate 2 07/17/22 16:11 07/17/22 17:11 07/17/22 20:36 Temperature 98.3 F 97.9 F 97.8 F Pulse Rate 85 90 92 Respiratory Rate 18 18 20 Blood Pressure 150/87 H 133/98 H 122/89 Pulse Oximetry 100 97 98 Oxygen Delivery Oxygen Flow Rate 07/17/22 20:00 07/18/22 00:48 07/18/22 04:04 Temperature 97.4 F L 97.1 F L Pulse Rate 92 97 87 Respiratory Rate 20 18 20 Blood Pressure 116/78 108/69 Pulse Oximetry 98 100 95 Oxygen Delivery Room Air Oxygen Flow Rate 07/18/22 08:15 Temperature Pulse Rate 91 Respiratory Rate Blood Pressure 111/76 Pulse Oximetry 100 Oxygen Delivery Oxygen Flow Rate Intake/Output Intake/Output: Intake & Output 07/15/22 07/16/22 07/17/22 07/18/22 23:59 23:59 23:59 23:59 Intake Total 2235 2440 2060 890 Output Total 2200 700 1800 400 Balance 35 1740 260 490 Meds/Results Medications: Active Medications Generic Name Dose Route Start Last Admin Trade Name Freq PRN Reason Stop Dose Admin Acetaminophen 650 mg 07/17/22 15:26 Acetaminophen 325 Mg Tablet PO Q6H PRN Pain Rated 1-3 Atorvastatin Calcium 40 mg 07/14/22 22:15 07/17/22 20:12 Atorvastatin 40 Mg Tablet PO 40 mg HS MERLE Administration Dextrose 12.5 gm 07/14/22 21:56 Dextrose 50% 25 Gm/50 Ml Syringe IV PUSH PRN PRN Hypoglycemia Protocol Furosemide 60 mg 07/15/22 09:00 07/15/22 09:08 Furosemide 20 Mg Tablet PO 60 mg QAM MERLE Administration Gabapentin 600 mg 07/14/22 22:15 07/18/22 08:16 Gabapentin 300 Mg Capsule PO 600 mg TID MERLE Administration Glucagon 1 mg 07/14/22 21:56 Glucagon For Inj 1 Mg Vial IM PRN PRN Hypoglycemia Protocol Glucose 15 gm 07/14/22 21:56 Glucose Oral Gel 15 Gm Of Glucse In 37.5 Gm Tube PO PRN PRN Hypoglycemia Protocol Hydroxyzine HCl 50 mg 07/14/22 22:10 Hydroxyzine Hcl 25 Mg Tablet PO Q8H PRN Anxiety Cefepime HCl 2 gm i
--- NOTE | 2022-07-18 11:05 | WPDANESPN ---
Anes - Prog Note Post-Op Date/Time: 07/18/22 11:05 Cardiovascular status: normal Respiratory status: normal Airway patency: baseline Mental status: baseline Post-Op hydration status: normal Vital Signs: Last Vital Signs Temp 37.3 C 07/18/22 09:11 Pulse 99 07/18/22 09:11 Resp 18 07/18/22 09:11 BP 131/91 H 07/18/22 09:11 Pulse Ox 100 07/18/22 09:11 O2 Del Method Room Air 07/18/22 08:42 O2 Flow Rate 2 07/17/22 15:15 Pain Score (VAS): 09/26 I/O: Intake & Output 07/17/22 07/18/22 07/18/22 23:59 07:59 15:59 Intake Total 810 890 520 Output Total 400 Balance 810 490 520 Laboratory Tests 07/18/22 05:12 07/18/22 05:12 07/17/22 07/17/22 07/17/22 12:19 14:05 18:29 WBC RBC Hgb Hct MCV MCH MCHC RDW Plt Count MPV Immature Gran % (Auto) Neut % (Auto) Lymph % (Auto) [place] % (Auto) Eos % (Auto) Baso % (Auto) Lymph # (Auto) [place] # (Auto) Eos # (Auto) Baso # (Auto) Abs Immat Gran (auto) Absolute Neuts (auto) Absolute Nucleated RBC Nucleated RBC % Sodium Potassium Chloride Carbon Dioxide Anion Gap BUN Creatinine Estim Creat Clear Calc Estimated GFR Glucose POC Capillary Glucose 121 H 107 H 85 Calcium Total Bilirubin AST ALT Alkaline Phosphatase Total Protein Albumin 07/17/22 07/18/22 07/18/22 20:14 05:12 05:12 WBC 5.9 RBC 4.56 L Hgb 12.7 L Hct 40.8 L MCV 89.5 MCH 27.9 MCHC 31.1 L RDW 15.3 H Plt Count 216 MPV 10.5 H Immature Gran % (Auto) 0.2 Neut % (Auto) 55.7 Lymph % (Auto) 36.5 Frontier % (Auto) 6.6 Eos % (Auto) 0.7 Baso % (Auto) 0.3 Lymph # (Auto) 2.16 Frontier # (Auto) 0.4 Eos # (Auto) 0.0 Baso # (Auto) 0.0 Abs Immat Gran (auto) 0.01 Absolute Neuts (auto) 3.3 Absolute Nucleated RBC 0.0 Nucleated RBC % 0.0 Sodium 128 L Potassium 4.4 Chloride 96 L Carbon Dioxide 28 Anion Gap 4 L BUN 17 Creatinine 1.10 Estim Creat Clear Calc 90 Estimated GFR > 60 Glucose 168 H POC Capillary Glucose 151 H Calcium 7.6 L Total Bilirubin 0.4 AST 19 ALT 14 Alkaline Phosphatase 85 Total Protein 6.0 L Albumin 2.7 L Post-procedural complaints: none Patient Feedback: Patient satisfied with anesthetic care.
[2022-07-18 11:46] LABS: Glucose Point of Care 117 mg/dl (65-105)
[2022-07-18] MEDS: oxyCODONE HCL (*CRX) 5 MG TAB IR 15 MG PO ×2 (12:25→19:26)
[2022-07-18] MEDS: SILVERGEL (ELTA) 45 ML 1 APPLIC TOPICAL (12:26)
[2022-07-18 13:27] LABS: Sodium 128 mmol/L (137-145)
[2022-07-18 16:42] LABS: Glucose Point of Care 109 mg/dl (65-105)
[2022-07-18] MEDS: SACCHAROMYCES BOULARDII 250 MG CAPSULE PO (16:54)
[2022-07-18] MEDS: GABAPENTIN 400 MG CAPSULE 800 MG PO (16:54)
[2022-07-18] MEDS: ATORVASTATIN 40 MG TABLET PO (20:26)
[2022-07-18] MEDS: SULFAMETHOXAZOLE/TRIMETHOPRIM 800/160 MG DS TABLET 1 TAB PO (20:26)
[2022-07-18] MEDS: AMOXICILLIN/CLAVULANATE K 875-125 MG TAB 1 TABLET PO (20:26)
[2022-07-18] MEDS: INSULIN GLARGINE (*BKC) 100 UNITS/ML 25 UNITS SUB-Q (20:27)
[2022-07-18 21:13] LABS: Glucose Point of Care 149 mg/dl (65-105)
[2022-07-19] MEDS: MORPHINE SULFATE (*CRX) 2 MG/ML INJ IV PUSH (01:21)
[2022-07-19 02:17] LABS: Vancomycin Trough 10.8 ug/mL (10.0-20.0)
[2022-07-19 03:55] VITALS: BP 124/83; PULSE 90; RESP 18; TEMP 36; O2SAT 100
[2022-07-19 06:00] LABS: Basophils Percent Auto 0.4 % (0.2-1.2); Eosinophils Absolute Auto 0.1 K/mm3 (0-0.3); Eosinophils Percent Auto 1.3 % (0-4.4); Hematocrit 39.4 % (42.0-52.0); Hemoglobin 12.4 g/dL (14.0-18.0); Immature Granulocyte Absolute 0.02 K/mm3 (0.00-0.031); Immature Granulocyte Percent A 0.4 % (0-0.5); Lymphocytes Absolute Auto 2.29 K/mm3 (0.9-3.2); Lymphocytes Percent Auto 42.3 % (18.3-44.2); Mean Corpuscular HGB Conc 31.5 g/dl (32-36); Mean Corpuscular Hemoglobin 27.3 pg (26-34); Mean Corpuscular Volume 86.8 fl (80-100); Mean Platelet Volume 10.2 fl (7.4-10.4); Monocytes Absolute Auto 0.4 K/mm3 (0.1-0.6); Monocytes Percent Auto 7.2 % (2.6-8.5); Neutrophils Absolute Auto 2.6 K/mm3 (1.3-6.7); Neutrophils Percent Auto 48.4 % (45.5-73.1); Platelet Count Result 232 k/mm3 (150-375); Red Blood Count 4.54 M/mm3 (4.6-6.20); Red Cell Distribution Width 15.2 % (11.5-14.5); White Blood Count 5.4 K/mm3 (4.5-10.0)
[2022-07-19 06:09] LABS: Alanine Aminotransferase 14 U/L (6-50); Albumin Level 2.8 g/dL (3.5-5.1); Alkaline Phosphatase 87 U/L (38-126); Anion Gap 3 mmol/L (8-16); Aspartate Amino Transferase 20 U/L (17-59); Bilirubin,Total 0.5 mg/dL (0.2-1.3); Blood Urea Nitrogen 22 mg/dL (9-20); Calcium 7.6 mg/dL (8.4-10.2); Carbon Dioxide 27 mmol/L (22-30); Chloride 102 mmol/L (98-107); Estimated CRCL calculation 84 ml/min; Estimated Glomerular Filt Rate > 60; Glucose 85 mg/dL (65-110); Potassium 4.2 mmol/L (3.4-5.0); Sodium 132 mmol/L (137-145)
[2022-07-19] MEDS: oxyCODONE HCL (*CRX) 5 MG TAB IR 15 MG PO (07:38)
[2022-07-19] MEDS: GLUCOSE ORAL GEL 15 GM OF GLUCSE IN 37.5 GM TUBE PO (07:52)
[2022-07-19 07:54] LABS: Glucose Point of Care 59 mg/dl (65-105)
[2022-07-19 08:13] LABS: Glucose Point of Care 50 mg/dl (65-105)
[2022-07-19 08:23] VITALS: BP 137/89; PULSE 82; RESP 17; TEMP 35.8; O2SAT 100
[2022-07-19 08:37] LABS: Glucose Point of Care 91 mg/dl (65-105)
[2022-07-19] MEDS: SULFAMETHOXAZOLE/TRIMETHOPRIM 800/160 MG DS TABLET 1 TAB PO (08:52)
[2022-07-19] MEDS: THERAPEUTIC MULTIVITAMINS/MINERALS TAB (*BKC) 1 TABLET PO (08:53)
[2022-07-19] MEDS: SACCHAROMYCES BOULARDII 250 MG CAPSULE PO (08:53)
[2022-07-19] MEDS: AMOXICILLIN/CLAVULANATE K 875-125 MG TAB 1 TABLET PO (08:53)
[2022-07-19] MEDS: lisinopriL 20 MG TABLET PO (08:53)
[2022-07-19] MEDS: GABAPENTIN 400 MG CAPSULE 800 MG PO (08:53)
--- NOTE | 2022-07-19 10:48 | PM.DS ---
DS: Admitting Diagnosis Discharge Date 07/19/2022 1049 Admitting Diagnosis Osteomyelitis of toe Insulin dependent type 2 diabetes mellitus Open fracture of phalanx of right second toe DS: Discharge Diagnosis Discharge Diagnosis (1) Osteomyelitis of toe: Code(s): M86.9 - Osteomyelitis, unspecified Status: Acute Assessment and Plan: Presented with left 2nd toe wound that has been present for a couple days. Hx of left great toe amputation. Xray revealed displaced fx at the base of the right second middle phalanx. Concern for an open/compound fx with secondary osteomyelitis. Continue cefepime, metronidazole, and vancomycin. Antibiotics day 3 Patient unable to see Podiatry due to insurance coverage and not willing to pay [id number]. Dr. Mann, Orthopedics consulted and appreciate recommendations. Per Orthopedics I wound care with Betadine swab b.i.d. Blood cultures negative to date. WBC 5 without left shift, lactic acid 1.1 on admission, CRP 1.1 Hemoglobin A1c 7.8 PRN analgesics PO oxycodone IR PRN with IV morphine 2 mg Q3 hours breakthrough pain. ABIs - Left ROSARIO 1.17, TBI 0.47; Right ROSARIO 0.99, TBI unable to obtain due to amputation. 07/17/22 OR debridement today. continue current management. 07/18/22 POD1 OR debridement and right 2nd toe proximal phalanx amputation. Dressing changed per surgery. Pathology pending. Change antibiotics to Bactrim DS 1 tab BID and Augmentin 875/125 mg PO BID for empiric antimicrobial coverage, including MRSA given prior peroneal abscess. continue abx for 7-10 days. Increased oxy IR 15 mg Q6 hours. increased gabapentin dose to 800 mg TID. (2) Insulin dependent type 2 diabetes mellitus: Code(s): E11.9 - Type 2 diabetes mellitus without complications; Z79.4 - intermediate (current) use of insulin Status: Chronic Assessment and Plan: Chronic Continue basal insulin. Initiate sliding scale insulin, Accu-Cheks, and hypoglycemic protocol. Hemoglobin A1c 7.8 Glucose 143-269 in the past 24 hours, patient will be NPO after midnight will adjust Lantus and NovoLog well and p.o. and adjust to keep glucose less than 200 for wound healing. 07/17 Resume previous basal-bolus insulin when able to eat after surgery. 07/18/22 Increased to lantus 25 units HS and novolog moderate-dose sliding scale insulin. (3) Open fracture of phalanx of right second toe: Qualifiers: Encounter type: initial encounter Qualified Code(s): S92.501B - Displaced unspecified fracture of right lesser toe(s), initial encounter for open fracture Code(s): S92.501B - Displaced unspecified fracture of right lesser toe(s), initial encounter for open fracture Status: Acute Assessment and Plan: Plan is as detailed above. Analgesics available as needed. Ortho following. (4) Hypertension: Qualifiers: Hypertension type: primary hypertension Qualified Code(s): I10 - Essential (primary) hypertension Code(s): I10 - Essential (primary) hypertension Status: Chronic Assessment and Plan: Chronic, stable. Blood pressures were reviewed. BP 109/71. Hold furosemide due to hyponatremia. Continue lisinopril. (5) Heart failure with reduced ejection fraction: Code(s): I50.20 - Unspecified systolic (congestive) heart failure Status: Chronic Assessment and Plan: Chronic, not in acute exacerbation. No s/s hypervolemia. Sodium 126 on 07/16/22 holding furosemide. Monitor I/O and daily weights. (6) Hyponatremia: Code(s): E87.1 - Hypo-osmolality and hyponatremia Status: Acute Assessment and Plan: Sodium 126 on 07/16/22. unknown baseline, but 131 on admission. May be medication induced. Hold furosemide. Monitor on narcotics, although he takes these chronically. urine sodium 91 and urine osmolality pending. Monitor I/O. 07/17 Sodium 130 today. Improving. 07/18/22 Sodium 128 today and unchanged
[2022-07-19] MEDS: SILVERGEL (ELTA) 45 ML 1 APPLIC TOPICAL (11:41)
[2022-07-19 11:57] LABS: Glucose Point of Care 114 mg/dl (65-105)
[2022-07-19 19:24] LABS: Osmolality, Urine 618 mOsm/kg (50-1200)
== END 2022-07-19 13:00 | DRG 314 ==
LOC: ANHED 13:19 → ANH3MEDSUR 15:52 → ANH2MED 16:30
PROVIDERS: Internal Medicine Critical Care Medicine; Orthopaedic Surgery; Physician Assistant; Admitting Provider Family Medicine; Emergency Provider Emergency Medicine; Visit Provider Nurse Practitioner Family
PROC: 0Y6R0Z1 Detachment at Right 2nd Toe, High, Open Approach (ICD-10-PCS; principal; 2022-07-17 15:00)
PROC: 0Y6R0Z1 Detachment at Right 2nd Toe, High, Open Approach (ICD-10-PCS; 2022-07-17 15:00)
DX: E11.69 Type 2 diabetes mellitus with other specified complication (principal); M86.171 Other acute osteomyelitis, right ankle and foot; U07.1 COVID-19; I11.0 Hypertensive heart disease with heart failure; I50.22 Chronic systolic (congestive) heart failure; E11.621 Type 2 diabetes mellitus with foot ulcer; E87.1 Hypo-osmolality and hyponatremia; L97.514 Non-pressure chronic ulcer of other part of right foot with necrosis of bone; E11.42 Type 2 diabetes mellitus with diabetic polyneuropathy; X58.XXXA Exposure to other specified factors, initial encounter; S92.501B Displaced unspecified fracture of right lesser toe(s), initial encounter for open fracture; Z79.4 Long term (current) use of insulin; L02.215 Cutaneous abscess of perineum; E78.5 Hyperlipidemia, unspecified; Z79.899 Other long term (current) drug therapy; Z79.84 Long term (current) use of oral hypoglycemic drugs; Z82.49 Family history of ischemic heart disease and other diseases of the circulatory system; Z83.3 Family history of diabetes mellitus; Z87.891 Personal history of nicotine dependence
CPT/HCPCS: 36415; 73630; 80048; 80053; 80202; 82948; 83036; 83605; 83735; 83935; 84295; 84300; 85025; 85027; 85610; 85730; 86140; 87040; 87636; 88305; 88311; 93922; 96365; 96366; 96367; 96375; 96376; 97161; 97165; 99285; A9270; G0378; G0379; J0131; J0692; J1170; J1815; J2270; J2405; J3010; J3370; J7120